=== PATIENT | female | born 1970 | race Caucasian/White ===

== ENCOUNTER 2019-10-11 00:21 | Emergency (ER) | payer OTHER ==
[~2019-10-11] VITALS: Ht 167.6 cm; Wt 85.0 kg
[2019-10-11 01:24] VITALS: BP 133/78
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
== END 2019-10-11 04:00 | disposition home or self-care (01) ==
LOC: ED 03:49
DX: S60.221A Contusion of right hand, initial encounter (principal); S80.02XA Contusion of left knee, initial encounter; V59.59XA Passenger in pick-up truck or van injured in collision with other motor vehicles in traffic accident, initial encounter; Y93.89 Activity, other specified; Y92.89 Other specified places as the place of occurrence of the external cause; Y99.8 Other external cause status
CPT/HCPCS: 93005; 99283